=== PATIENT | female | born 1935 | race Caucasian/White ===

== ENCOUNTER 2023-04-07 14:20 | Day surgery (SDC) | payer MEDICARE ==
[2023-04-07] MEDS ORDERED: Depo-Medrol 40 MG/ML IM ONE (14:21)
[2023-04-07] MEDS ORDERED: BUPIVACAINE 0.5% VIAL IJ ONE (14:21)
[2023-04-07] MEDS ORDERED: LIDOCAINE HCL 1% 50 MG/5 ML VL PF IJ ONE (14:21)
--- NOTE | 2023-04-07 16:57 | XRAY ---
Indication: Bilateral SI joint injection. Intraoperative fluoroscopy provided for 16 seconds. 5 digital spot image submitted for interpretation demonstrates posterior needle tip projecting over the expected left and right SI joint. Correlate with intraoperative findings/report. Incidental partially visualized right hip arthroplasty.
--- NOTE | 2023-04-07 16:59 | XRAY ---
16 seconds of fluoroscopy was used in surgery for bilateral SI joint injections.
== END 2023-04-07 16:55 | disposition home or self-care (01) ==
LOC: SDC-PAIN 14:20
PROVIDERS: ATTEND Psychiatry & Neurology Pain Medicine
DX: M46.1 Sacroiliitis, not elsewhere classified (principal); Z79.899 Other long term (current) drug therapy
CPT/HCPCS: 27096; 72202; 77002; G0260; J1030; J2001

== ENCOUNTER 2023-12-08 10:48 | Day surgery (SDC) | payer MEDICARE ==
[2023-12-08] MEDS ORDERED: LIDOCAINE HCL 2% 100 MG/5 ML IJ ONE (10:49)
[2023-12-08] MEDS ORDERED: Depo-Medrol 40 MG/ML IM ONE (10:49)
[2023-12-08] MEDS ORDERED: Lactated Ringers 1,000 ML IV ONE (11:56)
[2023-12-08] MEDS ORDERED: DIPRIVAN 200 MG/20 ML IV ONE (12:24)
--- NOTE | 2023-12-08 13:08 | XRAY ---
Indication: Bilateral L4-S1 MBB. Intraoperative fluoroscopy provided for 17 seconds. Single digital spot image submitted for interpretation demonstrates posterior needle tips projecting over expected left and right L4-S1 nerve roots. Correlate with intraoperative findings/report. Incidental L3-L5 vertebroplasty.
--- NOTE | 2023-12-08 15:16 | XRAY ---
17 seconds of fluoroscopy was used in surgery for a bilateral L4-S1 MBB.
== END 2023-12-08 12:55 | disposition home or self-care (01) ==
LOC: SDC-PAIN 10:48
PROVIDERS: ATTEND Psychiatry & Neurology Pain Medicine
DX: M47.816 Spondylosis without myelopathy or radiculopathy, lumbar region (principal)
CPT/HCPCS: 64493; 64494; 72020; 77002; J1010; J2704; J1030

== ENCOUNTER 2023-12-22 14:24 | Day surgery (SDC) | payer MEDICARE ==
[2023-12-22] MEDS ORDERED: BUPIVACAINE 0.5% VIAL IJ ONE (14:25)
[2023-12-22] MEDS ORDERED: Depo-Medrol 40 MG/ML IM ONE (14:25)
[2023-12-22] MEDS ORDERED: DIPRIVAN 200 MG/20 ML IV ONE (17:01)
[2023-12-22] MEDS ORDERED: Lactated Ringers 1,000 ML IV ONE (17:26)
--- NOTE | 2023-12-22 20:58 | XRAY ---
Indication: Bilateral L4-S1 MBB Intraoperative fluoroscopy provided for 18 seconds. Single digital spot image submitted for interpretation demonstrates posterior needle tips projecting over the expected left and right L4-S1 nerve roots. Correlate with intraoperative findings/report. Incidental L3-L5 vertebroplasty.
--- NOTE | 2023-12-23 08:55 | XRAY ---
18 seconds of fluoroscopy was used in surgery for a bilateral L4-S1 MBB.
== END 2023-12-22 17:30 | disposition home or self-care (01) ==
LOC: SDC-PAIN 14:24
PROVIDERS: ATTEND Psychiatry & Neurology Pain Medicine
DX: M47.816 Spondylosis without myelopathy or radiculopathy, lumbar region (principal)
CPT/HCPCS: 64493; 64494; 72020; 77002; J1010; J2704

== ENCOUNTER 2024-01-19 09:03 | Day surgery (SDC) | payer MEDICARE ==
[2024-01-19] MEDS ORDERED: Depo-Medrol 40 MG/ML IM ONE (09:04)
[2024-01-19] MEDS ORDERED: BUPIVACAINE 0.5% VIAL IJ ONE (09:04)
[2024-01-19] MEDS ORDERED: XYLOCAINE-MPF 1% 5ML SDV IJ ONE (09:04)
[2024-01-19] MEDS ORDERED: DIPRIVAN 200 MG/20 ML IV ONE (10:29)
[2024-01-19] MEDS ORDERED: Lactated Ringers 1,000 ML IV ONE (11:16)
--- NOTE | 2024-01-19 11:58 | XRAY ---
Indication: Right L4-S1 RFA. Intraoperative fluoroscopy provided for 40 seconds. 4 digital spot image submitted for interpretation demonstrates posterior needle tips projecting over the expected right L4-S1 nerve roots. Correlate with intraoperative findings/report. Incidental incompletely visualized L3-L5 kyphoplasty.
--- NOTE | 2024-01-19 12:07 | XRAY ---
40 seconds of fluoroscopy was used in surgery for a right L4-S1 RFA.
== END 2024-01-19 11:03 | disposition home or self-care (01) ==
LOC: SDC-PAIN 09:03
PROVIDERS: ATTEND Psychiatry & Neurology Pain Medicine
DX: M47.816 Spondylosis without myelopathy or radiculopathy, lumbar region (principal)
CPT/HCPCS: 64635; 64636; 72100; 77002; 99100; J1010; J2704

== ENCOUNTER 2024-03-08 13:36 | Day surgery (SDC) | payer MEDICARE ==
[2024-03-08] MEDS ORDERED: BUPIVACAINE 0.5% VIAL IJ ONE (13:37)
[2024-03-08] MEDS ORDERED: Depo-Medrol 40 MG/ML IM ONE (13:37)
[2024-03-08] MEDS ORDERED: DIPRIVAN 200 MG/20 ML IV ONE (16:14)
[2024-03-08] MEDS ORDERED: Lactated Ringers 1,000 ML IV ONE (17:57)
--- NOTE | 2024-03-08 20:25 | XRAY ---
Indication: Left hip injection. Intraoperative fluoroscopy provided for 23 seconds. Single digital spot image submitted for interpretation demonstrates needle tip projecting lateral to left femur neck. Small amount of contrast injected for needle tip placement. Correlate with intraoperative findings/report.
--- NOTE | 2024-03-09 09:13 | XRAY ---
23 seconds of fluoroscopy was used in surgery for a left intra-articular hip injection.
== END 2024-03-08 17:00 | disposition home or self-care (01) ==
LOC: SDC-PAIN 13:36
PROVIDERS: ATTEND Psychiatry & Neurology Pain Medicine
DX: M16.12 Unilateral primary osteoarthritis, left hip (principal)
CPT/HCPCS: 20610; 73501; 77002; J2704; Q9966